=== PATIENT | female | born 1985 | race African-American/Black ===

== ENCOUNTER 2021-07-12 18:52 | Emergency (ER) | payer MEDICAID ==
[~2021-07-12] VITALS: Ht 172.7 cm; Wt 95.0 kg
[2021-07-12 18:54] VITALS: BP 169/88
== END 2021-07-12 20:53 | disposition home or self-care (01) ==
LOC: ER 18:52
DX: U07.1 COVID-19 (principal); Z71.89 Other specified counseling
CPT/HCPCS: 93005; 99284; C9803; U0003; U0005